=== PATIENT | male | born 1975 | race Caucasian/White ===

== ENCOUNTER → 2020-07-05 10:40 | Outpatient (CLI) | payer BC, SELFPAY ==
--- NOTE | ~2020-07-05 | XR_ITS ---
XR foot RT 2V DATE: 07/05/2020 11:45 INDICATION: Multiple joint pain TECHNIQUE: AP and lateral views COMPARISON: None FINDINGS: Mild posterior calcaneal enthesopathy. No fracture or dislocation, periosteal reaction or bone destruction. IMPRESSION: Mild posterior calcaneal enthesopathy Reviewed, dictated and finalized at location A. ER OPERATOR
--- NOTE | ~2020-07-05 | XR_ITS ---
XR wrist RT 2V DATE: 07/05/2020 11:45 INDICATION: Multiple joint pain TECHNIQUE: AP and lateral views COMPARISON: None FINDINGS: No fracture or dislocation, periosteal reaction or bone destruction, erosive change or kali drocalcinosis. Joint spaces are preserved. IMPRESSION: Negative Reviewed, dictated and finalized at location A. REPAIRER IMPRESSION: Negative
--- NOTE | ~2020-07-05 | XR_ITS ---
XR hand RT 2V DATE: 07/05/2020 11:45 INDICATION: Multiple joint pain TECHNIQUE: AP and lateral views COMPARISON: None FINDINGS: No fracture or dislocation, periosteal reaction or bone destruction, erosive change or kali drocalcinosis. Joint spaces are preserved. IMPRESSION: Negative Reviewed, dictated and finalized at location A. L BUILDER IMPRESSION: Negative
--- NOTE | ~2020-07-05 | XR_ITS ---
XR hand LT 2V DATE: 07/05/2020 11:45 INDICATION: Multiple joint pain TECHNIQUE: AP and lateral views COMPARISON: None FINDINGS: Several small calcifications are noted anterior to the distal radius on the lateral view. No fracture, dislocation, periosteal reaction or bone destruction of the left hand is detected. IMPRESSION: Nonspecific small calcifications anterior to the distal radius on lateral view; no other significant soft tissue or bony abnormality Reviewed, dictated and finalized at location A. RAMMER AND SEAMER IMPRESSION: Nonspecific small calcifications anterior to the distal radius on l ateral view; no other significant soft tissue or bony abnormality
--- NOTE | ~2020-07-05 | XR_ITS ---
XR foot LT 2V DATE: 07/05/2020 11:45 INDICATION: Multiple joint pain TECHNIQUE: AP and lateral views COMPARISON: None FINDINGS: Slight posterior calcaneal enthesopathy. No fracture or dislocation, periosteal reaction or bone destruction. Joint spaces are preserved. IMPRESSION: Slight posterior calcaneal enthesopathy Reviewed, dictated and finalized at location A. NESS NURSE RN
--- NOTE | ~2020-07-05 | XR_ITS ---
XR wrist LT 2V DATE: 07/05/2020 11:45 INDICATION: Multiple joint pain TECHNIQUE: AP and lateral views COMPARISON: None FINDINGS: There are some nonspecific small likely chronic soft tissue calcifications at the anterior aspect of the distal radius on lateral view. No fracture or dislocation, periosteal reaction or bone destruction, chondrocalcinosis or erosive henry nge. IMPRESSION: Nonspecific small soft tissue calcifications Reviewed, dictated and finalized at location A. CCO CHECKOUT CLERK
--- NOTE | ~2020-07-05 | XR_ITS ---
XR ankle RT 2V DATE: 07/05/2020 11:45 INDICATION: Multiple joint pain TECHNIQUE: 2 views COMPARISON: None FINDINGS: Mild posterior calcaneal enthesopathy. No fracture or dislocation of the ankle or disruption of the ankle mortise. No evidence of bone destr uction. IMPRESSION: Mild posterior calcaneal enthesopathy Reviewed, dictated and finalized at location A. INTERVIEWER
--- NOTE | ~2020-07-05 | XR_ITS ---
XR ankle LT 2V DATE: 07/05/2020 11:45 INDICATION: Multiple joint pain TECHNIQUE: 2 views COMPARISON: None FINDINGS: Slight posterior calcaneal enthesopathy. No fracture or dislocation of the ankle or disruption of the ankle mortise. No bone destruction. IMPRESSION: Slight posterior calcaneal enthesopathy Reviewed, dictated and finalized at location A. EACH CLINICIAN
== END ==
DX: M25.50 Pain in unspecified joint (principal); R53.81 Other malaise; M79.10 Myalgia, unspecified site; M77.31 Calcaneal spur, right foot
CPT/HCPCS: 73100; 73120; 73600; 73620

== ENCOUNTER → 2021-12-15 09:49 | Outpatient (CLI) | payer BC, SELFPAY ==
--- NOTE | ~2021-12-15 | MR_ITS ---
EXAMINATION: MR renal wo/w con DATE: 12/15/2021 10:41 INDICATION: Renal mass TECHNIQUE: Magnetic resonance imaging (MRI) of the abdomen was performed without and with 20 mL Multi daylin intravenous contrast. Sequences included coronal T2-weighted SS-FSE, coronal and axial FS 2D-F IESTA, axial STIR FSE, axial T2-weighted SS-FSE, axial T2-weighted FS SS-FSE, axial diffusion-weighte d SE, axial dual-echo T1-weighted FSPGR, and axial and coronal T1-weighted LAVA. Postcontrast axial T 1-weighted LAVA images were obtained in a time course. Postcontrast coronal T1-weighted LAVA images w ere obtained. COMPARISON: None. FINDINGS: The heart size is normal. No pericardial or pleural effusion. Liver, gallbladder, spleen, pancreas an d bilateral adrenal glands are normal. 7 mm nonenhancing region at the lower pole of the left kidney which follows fat signal including fat saturation at the lower pole of the left kidney most likely a focus of cortical scarring although differential includes macroscopic fat containing angiomyolipoma. Kidneys otherwise normal. No abnormally enhancing renal lesions identified to suggest renal cell carc inoma. Visualized portions of the bowels are unremarkable. No pathologically enlarged abdominal lymph adenopathy. Mild thoracic levoscoliosis with mild right-sided vertebral body height loss at T9 and T1 0. Bone marrow signal is normal throughout. IMPRESSION: 1. Nonenhancing 7 mm macroscopic fat containing lesion at the lower pole of the left kidney which cou ld represent either focal cortical scarring or an angiomyolipoma. Otherwise normal kidneys. Reviewed, dictated and finalized at location A. IMPRESSION: 1. Nonenhancing 7 mm macroscopic fat containing lesion at the lower pole of the left kidney which could represent either focal cortical scarring or an angiomy olipoma. Otherwise normal kidneys.
[2021-12-15 10:07] LABS: Estimated Glomerular Filt Rate > 60
== END ==
PROVIDERS: PCP Family Medicine; Visit Provider Family Medicine
DX: N28.89 Other specified disorders of kidney and ureter (principal)
CPT/HCPCS: 74183; A9577